=== PATIENT | female | born 1960 | race Caucasian/White ===

== ENCOUNTER → 2022-11-26 | Outpatient (CLI) | payer OTHER ==
[~2022-11-26] MED LIST: CEPH500 PO; KETO10 PO; Norco 5-325 Ta1 EACH PO; Zofran Odt4 MG PO
[2022-11-26 20:32] LABS: Percent Saturation 30.9 % (15.0-50.0)
== END | disposition home or self-care (01) ==
LOC: LAB SHORT 18:54 → LAB 18:54
PROVIDERS: Family Medicine
DX: G25.81 Restless legs syndrome (principal)
CPT/HCPCS: 82728; 83540; 83550